=== PATIENT | male | born 1985 | race Caucasian/White ===

== ENCOUNTER 2022-02-05 17:51 | Emergency (ER) | payer OTHER ==
[~2022-02-05] VITALS: Ht 170.2 cm; Wt 99.8 kg
[~2022-02-05 17:51] MED LIST: CRUTCH4 XX; CYCL10 PO; HYDACE5 PO; IBUP600 PO; LISI5; NAPR500 PO; Norco 5-325 Ta1 EACH PO; PROM25 PO; ZESTORETIC 20-121 EA PO
[2022-02-05] MEDS ORDERED: CEPH500 PO (19:02)
== END 2022-02-05 19:26 | disposition home or self-care (01) ==
LOC: ER 17:51
DX: L03.116 Cellulitis of left lower limb (principal); Z79.899 Other long term (current) drug therapy; I10 Essential (primary) hypertension; F17.200 Nicotine dependence, unspecified, uncomplicated
CPT/HCPCS: 99283; A9270